=== PATIENT | female | born 1945 | race Caucasian/White ===

== ENCOUNTER → 2020-02-12 16:08 | Outpatient (ROUT) | payer MEDICARE, OTHER, SELFPAY ==
[2020-02-13 13:52] LABS: COVID19 Sendout Not Detected (Not Detect)
== END ==
PROVIDERS: Visit Provider Nurse Practitioner
DX: Z11.59 Encounter for screening for other viral diseases (principal)
CPT/HCPCS: 87635

== ENCOUNTER → 2020-02-15 12:50 | Outpatient (CLI) | payer MEDICARE, OTHER, SELFPAY ==
--- NOTE | 2020-02-22 16:25 | PM.PFT.1 ---
Pulmonary Function Test Referral & Results Date Patient Seen: 02/15/20 Requesting provider: Cherelle Fitzpatrick Indication: Dyspnea upon exertion Results: The spirometry demonstrates an FVC of 1.29 L which is 46% of predicted. The FEV1 was measured at 1.16 L which is 54% of predicted. The FEV1/FVC ratio was 90 which is 119% of predicted. Following the administration of bronchodilator there was 48% improvement in FEF 25-75%. Lung volumes show an SVC of 1.37 L which is 49% of predicted. The diffusing capacity was measured at 12.1 which is 52% of predicted. No hemoglobin value was provided, so no correction for potential anemia could be made, if appropriate. The maximum voluntary ventilation was reduced Interpretation: This study demonstrates both severe restrictive and obstructive lung disease which are fairly balance suggesting more of an interstitial and restrictive lung process. Diffusing capacity is also severely reduced suggesting significant disease at the capillary alveolar level. Altogether this is most consistent with an interstitial lung disease Clinical correlation suggested
== END ==
PROVIDERS: Referring Provider Student in an Organized Health Care Education/Training Program; Visit Provider Student in an Organized Health Care Education/Training Program
DX: R06.09 Other forms of dyspnea (principal); J98.8 Other specified respiratory disorders
CPT/HCPCS: 94060; 94726; 94729

== ENCOUNTER → 2022-03-03 08:51 | Outpatient (CLI) | payer MEDICARE, OTHER, SELFPAY ==
--- NOTE | 2022-03-03 08:53 | DI.RAD.S_ITS ---
PROCEDURE: FL BARIUM SWALLOW W SPEECH INDICATIONS: BRONCHIECTASIS COMPARISON: None. TECHNIQUE: Examination was conducted in conjunction with speech pathology per standard protocol. In the lateral projection, filming was performed of the patient swallowing. AP projection filming may also be performed with patient swallowing. COMPARISON: FINDINGS: Function: The oral preparatory and propulsive phase demonstrates diminished peristalsis. pharyngeal phase appear normal with all proffered substances. No laryngotracheal penetration or aspiration. Mild vallecular and piriform sinus pooling. Brief evaluation of the esophagus in the AP position was performed. There was diminished esophageal peristalsis with tertiary contractions. The calibrated barium tablet was briefly held up at the gastroesophageal junction. Morphology: No cricopharyngeal bar is identified. No cervical esophageal webs. No Zenker's diverticulum. No strictures. C2-C5 ACDF. IMPRESSION: No aspiration. Oral propulsive phase is diminished. Esophageal dysmotility. Please see separately dictated speech pathologist's report. Dictated by: Tenzin aH M.D. on 03/03/2022 at 20:45 Approved by: Tenzin Ha M.D. on 03/03/2022 at 20:49
--- NOTE | 2022-03-03 14:03 | ST.SWALLOW ---
Visit Care Team Role Provider Type Gopi Berg MD Attending Provider Non-Staff Referring Provider Specialty: Internal Medicine Address: [address] [place] [address] [address], [place], [address] Email: Modified Barium Swallow Study SALES CLERK SUPERVISOR Modified Barium Swallow Study Start: 03/03/22 11:31 Freq: Status: Active Protocol: Document 03/03/22 12:39 LNK (Rec: 03/03/22 14:03 LNK [id number]) Modified Barium Swallow Study Total Time Visit Start Time 09:30 Visit Stop Time 10:00 Total Visit Minutes [address] Berg Reason for Referral dysphagia Setting Setting Outpatient Care Patient Information Identification Type Name,Date of Patient History Pt is a 76 year old female seen for a Modified Barium Swallow Study (MBSS). Pt reported that she frequently has difficulty swallowing foods, liquids and pills. She noted that breads and meats are the hardest to swallow feeling stuck and unable to move toward her stomach. She takes medications in a yogurt carrier to avoid them getting stuck in her throat. Pt reported coughing/choking often. She is using cough drops or hard candy to keep her mouth/throat moist. Pt has a PMH of breast cancer (in 1995) with radiation treatment to her chest area and ACDF (in 2013). Pt is also being treated by Dr. Alexander, a field service tech, in [place]. Subjective Observations Pt was seated in the fluoroscopy chair. Directions and procedure were described for the pt, who indicated she understood and agreed to proceed. Patient Positioning Position View Lat-A/P Imaging Lateral View Textures Administered Trials Presented Thin Liquid via Spoon,Thin Liquid via Cup,Pudding Thick Liquid via Spoon,Regular Textures,Barium Tablet Oral Phase Source: MBSIMP (TM) (C) Bolus Specific Scoring Grid Lip Closure No Impairment (WNL) Tongue Control During Bolus Hold No Impairment (WNL) Bolus Prep/Mastication No Impairment (WNL) Bolus Transport/Lingual Motion WFL A/P Lingual Propulsion Delay No Oral Residue Minimal Impairment Residue Clearing Minimal Impairment Nasal Regurgitation No Additional Oral Phase Observations OME indicated structures and function to be WNL. DKS was observed to be WNL. Oral phase: Pt demonstrated good mastication with rotary chew pattern, good bolus control and AP transition. Oral residue was observed at the base of tongue and upper pharynx. This residue remained during the MBSS. Pharyngeal Phase Source: MBSIMP (TM) (C) Bolus Specific Scoring Grid Delayed Initiation of Pharyngeal Swallow No Soft Palate Elevation No Impairment (WNL) Tongue Base Strength/Range of Motion Mild Impairment Residue Along the Tongue Base Yes Clearance of Residue Along Tongue Base Mild Impairment Laryngeal Elevation WFL Anterior Hyoid Movement WFL Epiglottic Range of Motion Moderate Impairment Vallecular Residue Yes: Epiglottis is curled upward in swallow - residue observed across all trials Clearance of Vallecular Residue Moderate Impairment Laryngeal Vestibular Closure Minimal Impairment Pharyngeal Stripping Wave Mild Impairment Posterior Pharyngeal Wall Residue Yes Clearance of Posterior Pharyngeal Wall Mild Impairment Residue Upper Esophageal Sphincter Opening Moderate Impairment Residue in the Pyriform Sinuses Yes Clearance of Residue in the Pyriform Mild Impairment Sinuses Esophageal Clearance Upright Position Severe Impairment Pharyngoesophageal Backflow Observed No Additional Pharyngeal Phase Observations Hyolaryngeal elevation was minimally impaired with flat hyoid movement (instead of angled upward) as the result of observed tongue base weakness. The pt's epiglottis did not invert completely, but was observed to lay in a horizontal position with the curled tip against the posterior pharyngeal wall. This resulted in valecullar pooling throughout the trails, especially with solid trials. However, the seal of the laryngeal vestibule appeared to be functional with no penetration or aspiration of contrast observed during MBSS. Pharyngeal contraction appeared to be weak reducing bolus control to UES and resulting in contrast remaining along the posterior pharyngeal wall. Pooling was observed in the valeculla, the pyriform sinuses, and at the tongue base. There appeared to be reduced duration and extension of the UES opening, with the pt needing to swallow solids >5-6 times per bolus. A/P View Textures Administered Trials Presented Barium Tablet A/P View Observations Esophageal Function Slowed Clearing,Poor Motility, Reverse Peristalsis,Stasis, Narrowing Esophageal Clearance Upright Position Moderate Impairment Additional Observations Pt position was changed from lateral view to AP. Contrast residue was observed remaining throughout the esophagus before tablet trial. Esophageal spasm was noted near mid chest area. When the tablet was swallowed, the pt needed to swallow several sips of water in order to clear the esophagus. There were 3 instances of the tablet stopping during the esophageal scan. Esophageal dysmotility, stasis, narrowing and spasm were noted. Recommend GI referral. Clinical Impressions Findings While no instances of laryngeal penetration/aspiration were observed, the pt remains at risk for aspiration. The lack of complete inversion of the epiglottis and reduction of complete laryngeal seal for swallowing, along with reduced UES opening and esophageal clearing may all contribute to the pt's risk for aspiration. With the pt's PMH of ACDF and s/p radiation treatment in the chest area, there is concern for stiffening of the laryngeal, pharyngeal and esophageal structures as after -effects of the radiation treatments. Additionally, there are potential negative effects on a pt's swallow following ACDF surgery resulting from possible nerve damage during surgery. This pt presents with a moderate aspiration risk. Swallowing therapy is recommended for base of tongue exercises and implementation of safe swallow strategies. Rehabilitation Potential Good Patient Appropriate for Therapy Yes Recommendations Diet Medication Recommendation As Tolerated,Whole in Carrier, Crushed in Carrier Comments No change in diet at this time . Aspiration Precautions Recommended Precautions Upright at 90 Degrees, Alternate Liquids/Solids, Frequent Rest Periods,Small Bites/Sips Treatment Plan Therapy Recommendations Outpatient Speech Therapy,Base of Tongue Exercises,Vocal Fold Adduction Exercises, Compensatory Strategy Education Additional Therapy Recommendations Pt describes hoarseness of her voice. Recommend voice evaluation referral Recommended Referrals GI Consult Additional Recommended Referrals Pt requested that her Production Control Supervisor, Dr Alexander, receive copy of this report Compensatory Strategies Recommendations Sitting Upright (90 deg),Small Bites and Sips,Alternate Liquids/Solids Short Term Goals 1) Therapeutic strategies to reduce the risk of aspiration will be provided to the pt with pt education of normal swallow physiology. 2) Pt's MBSS video will be reviewed with the pt to explain and educate on current aspiration risk, 3) Safe swallow techniques will be demonstrated and practiced by pt to aid in reduced risk for aspiration 4) Tongue based exercises to increase strength of base of tongue and closure of the laryngeal vestibule will be demonstrated and practiced by the pt.1) Additional Recommendations/Comments GI referral
--- NOTE | 2022-03-03 14:11 | ST.OPPOC ---
Physical, Occupational & Speech Therapy At [facility] Visit Care Team Role Provider Type Gopi Berg MD Attending Provider Non-Staff Referring Provider Address: [facility] [address], [place], [address] Speech Pathology Plan of Care Referring Provider Dr. Berg Patient History Pt is a 76 year old female seen for a Modified Barium Swallow Study (MBSS). Pt reported that she frequently has difficulty swallowing foods, liquids and pills. She noted that breads and meats are the hardest to swallow feeling stuck and unable to move toward her stomach. She takes medications in a yogurt carrier to avoid them getting stuck in her throat. Pt reported coughing/choking often. She is using cough drops or hard candy to keep her mouth/throat moist . Pt has a PMH of breast cancer (in 1995) with radiation treatment to her chest area and ACDF ( in 2013). Pt is also being treated by Dr. Alexander, a technologist infectious disease, in [place]. Hyolaryngeal elevation was minimally impaired with flat hyoid movement (instead of angled upward) as the result of observed tongue base weakness. The pt's epiglottis did not invert completely, but was observed to lay in a horizontal position with the curled tip against the posterior pharyngeal wall. This resulted in valecullar pooling throughout the trails, especially with solid trials. However, the seal of the laryngeal vestibule appeared to be functional with no penetration or aspiration of contrast observed during MBSS. Pharyngeal contraction appeared to be weak reducing bolus control to UES and resulting in contrast remaining along the posterior pharyngeal wall. Pooling was observed in the valeculla, the pyriform sinuses, and at the tongue base. There appeared to be reduced duration and extension of the UES opening, with the pt needing to swallow solids >5-6 times per bolus. Pt position was changed from lateral view to AP. Contrast residue was observed remaining throughout the esophagus before tablet trial. Esophageal spasm was noted near mid chest area. When the tablet was swallowed, the pt needed to swallow several sips of water in order to clear the esophagus. There were 3 instances of the tablet stopping during the esophageal scan. Esophageal dysmotility, stasis, narrowing and spasm were noted. Recommend GI referral. Whle no instances of laryngeal penetration/aspiration were observed, the pt remains at risk for aspiration. The lack of complete inversion of the epiglottis and reduction of complete laryngeal seal for swallowing, along with reduced UES opening and esophageal clearing may all contribute to the pt's risk for aspiration. With the pt's PMH of ACDF and s/p radiation treatment in the chest area, there is concern for stiffening of the laryngeal, pharyngeal and esophageal structures as after-effects of the radiation treatments. Additionally, there are potential negative effects on a pt's swallow following ACDF surgery resulting from possible nerve damage during surgery. This pt presents with a moderate aspiration risk. Swallowing therapy is recommended for base of tongue exercises and implementation of safe swallow strategies. GOALS: 1) Therapeutic strategies to reduce the risk of aspiration will be provided to the pt with pt education of normal swallow physiology. 2) Pt's MBSS video will be reviewed with the pt to explain and educate on current aspiration risk, 3) Safe swallow techniques will be demonstrated and practiced by pt to aid in reduced risk for aspiration 4) Tongue based exercises to increase strength of base of tongue and closure of the laryngeal vestibule will be demonstrated and practiced by the pt. Electronically Signed by: SHARMILA De Jesus 03/03/22 [id number] If you are in agreement with this Plan of Care, please return a signed and dated copy. I have reviewed this Plan of Care and certify that the skilled therapy services above are required to meet the patient?s needs. Physician Signature Date Printed Name and Credentials Clinical Instructor Signature Printed Name and Credentials
== END ==
PROVIDERS: Referring Provider Internal Medicine; Visit Provider Internal Medicine
DX: J47.9 Bronchiectasis, uncomplicated (principal); K22.4 Dyskinesia of esophagus
CPT/HCPCS: 74230; 92611

== ENCOUNTER → 2022-09-15 12:16 | Outpatient (CLI) | payer MEDICARE, OTHER, SELFPAY ==
[2022-09-15 13:26] LABS: Add Manual Diff / Slide Review NO; Basophils Absolute Auto 0 /uL (0-100); Basophils Percent Auto 0.4 % (0-2); Eosinophils Absolute Auto 100 /uL (0-450); Eosinophils Percent Auto 0.9 % (2-4); Hemoglobin 11.4 g/dL (12.0-16.0); Lymphocytes Absolute Auto 600 /uL (1100-4500); Mean Corpuscular HGB Conc 33.4 % (30-36); Mean Corpuscular Hemoglobin 34.3 PG (26-34); Mean Corpuscular Volume 102.5 fL (80-100); Monocytes Absolute Auto 500 /uL (0-900); Monocytes Percent Auto 8.3 % (3-14); Neutrophils Absolute Auto 5300 /uL (1500-7000); Neutrophils Percent Auto 81.4 % (50-75); Platelet Count 212 X10^3/uL (150-400); Red Blood Cell Count 3.31 X10^6/uL (4.0-5.2); Red Cell Distribution Width 15.5 % (11.6-14.8); White Blood Cell Count 6.6 X10^3/uL (4.5-11.0)
[2022-09-15 13:37] LABS: Alanine Aminotransferase 47 IU/L (<35); Albumin 4.3 g/dL (3.5-5.0); Albumin Globulin Ratio 1.3 (1.0-2.8); Alkaline Phosphatase 78 U/L (38-126); Aspartate Aminotransferase 61 IU/L (14-36); BUN Creatinine Ratio 21.7 (6-22); Bilirubin Total 0.5 mg/dL (0.2-1.3); Blood Urea Nitrogen 35 mg/dL (7-17); Calcium 9.4 mg/dL (8.4-10.2); Carbon Dioxide 33 mmol/L (22-32); Chloride 100 mmol/L (98-107); Estimated Glomerular Filt Rate 33 mL/min (>60); Globulin 3.3 g/dL (1.7-4.1); Glucose 98 mg/dL (80-110); HEMOLYSIS < 15 (0-50); Potassium 4.5 mmol/L (3.4-5.1); Sodium 139 mmol/L (137-145); Total Protein 7.6 g/dL (6.3-8.2)
[2022-09-15 13:50] LABS: NT-proBNP (BNP-Adult 18+) 2960 pg/mL (<450)
== END ==
PROVIDERS: Family Provider Internal Medicine; PCP Internal Medicine; Referring Provider Internal Medicine Cardiovascular Disease; Visit Provider Internal Medicine Cardiovascular Disease
DX: R06.09 Other forms of dyspnea (principal); I10 Essential (primary) hypertension; E78.5 Hyperlipidemia, unspecified
CPT/HCPCS: 36415; 80053; 83735; 83880; 85025

== ENCOUNTER → 2023-09-06 11:08 | Outpatient (RCR) | payer MEDICARE, OTHER, SELFPAY ==
--- NOTE | 2022-04-26 16:13 | ST.OPIE ---
Visit Care Team Role Provider Type Gopi Berg MD Attending Provider Non-Staff Family Provider Primary Care Provider Referring Provider Specialty: Internal Medicine Address: [address] [place] [address] [address], [place], [address] Email: Speech-Language Pathology Initial Evaluation SHOW GIRL Clinical Swallow Evaluation Start: 04/26/22 09:23 Freq: Status: Active Protocol: Document 04/26/22 12:20 CG (Rec: 04/26/22 13:22 CG [id number]) Clinical Swallow Evaluation Session Time Visit Start Time 10:30 Visit Stop Time 11:25 Total Visit Minutes 55 Visit Information Visit Number 1 Referral Referring Provider Otis Reason for Referral c/o coughing/choking, MBS follow up Setting Assessment Location Outpatient Care Visit Type Note Type Initial evaluation Next Note Type Next Note Type Treatment Note Patient Information Identification Type Name History Pt is a 76 year old female seen for a clinical swallowing evaluation. She was previously seen for a Modified Barium Swallow Study (MBSS) on 03/03/22. Per H&P from MBS: Pt reported that she frequently has difficulty swallowing foods, liquids and pills. She noted that breads and meats are the hardest to swallow feeling stuck and unable to move toward her stomach. She takes medications in a yogurt carrier to avoid them getting stuck in her throat. Pt reported coughing /choking often. She is using cough drops or hard candy to keep her mouth/throat moist. Pt has a PMH of breast cancer (in 1995) with radiation treatment to her chest area and ACDF (in 2013). Pt is also being treated by Dr. Alexander, a cleat maker, in [place]. At this visit pt endorsed this history and reported coughing episodes throughout the day with occasional coughing episodes in the middle of the night. She has not followed up with GI regarding dysphagia though she does take Pantoprazole 40mg and Famotodine 20mg. She reports unintended weight loss due to frequent feelings of premature fullness. Subjective Observations Pt presented with a hoarse voice but otherwise denied any pain. She was alert, oriented, and cooperative throughout and expressed understanding of evaluation and treatment goals. Reported by Patient Current Diet Regular,Thin liquids Baseline Feeding Method Independent in self-feeding Objective Assessment Mental Status Alert,Responsive,Cooperative Oral Integrity WFL Dentition Within normal limits Lip Function Within normal limits Observation of Lips at Rest Symmetrical Pucker Within normal limits Lip Retraction Within normal limits Alternating Pucker/Lip Retraction Within normal limits Tongue Function Within normal limits Observations of Tongue at Rest Within normal limits Tongue Protrusion Within normal limits Tongue Retraction Reduced strength Tongue Lateralization Within normal limits Jaw Function Within normal limits Observations of Jaw at Rest Within normal limits Hard/Soft Palate Function Within normal limits Phonation Hoarse Respiratory Sufficiency Mild impairment Comment Structure and function of tongue, lips, jaw, and oral cavity appear WNL for swallowing. Pt presented with hoarseness and apparent tachypnea/SOB. Pt reports she has scarring on her lungs and is working with a cleat maker in [place]. Food and Liquid Trials Position During Assessment Upright (90 degrees),In chair Liquids Trialed Thin,Pudding Solids Trialed Mechanical Soft,Regular Administration Type Cup single sip,Cup consecutive sips,Self-feeding Oral Impairment Mildly impaired Oral Phase Comments Mild-moderate residue observed on soft palate/ base of tongue following all solid trials, indicating reduced BOT movement, which is consistent with results of MBSS. Otherwise, oral preparatory phase, AP propulsion, and swallow initiation appear WNL. Pharyngeal Impairment Mildly impaired Pharyngeal Phase Comments Trials single cup sip thin, pudding via teaspoon, and regular solid (iva cracker) were all WNL, though audible borborygmi were present and appeared to emanate from esophagus rather than stomach. Trials sequential swallows of thin liquid resulted in pt complaining of bolus not wanting to go down and stating it was difficult to swallow multiple times in a row. This is likely due to slowed esophageal emptying and reduced UES opening as observed on MBSS. Fatigue/Endurance Endurance WNL Findings Swallowing Function Dysphagia unspecified Swallowing Function Comments Reduced BOT retraction, pharyngeal residue, esophageal dysmotility Severity of Swallow Impairment Moderately impaired Contributing Factors to Swallow Excessive pharyngeal residue Impairment Comments Swallow impairment exacerbated by esophageal dysfunction Prognosis Good Based on Cognitive status,Family support Comment Overall, pt presents with moderate dysphagia characterized by mild oral phase impairments, mild pharyngeal phase impairments, and moderate-severe esophageal phase impairment. Oral phase impairments include reduced BOT retraction/strength, resulting in pharyngeal residue in valleculae as observed on MBSS. Esophageal phase is characterized by s/s such as premature fullness and s/s silent reflux (waking up coughing at night, hoarse voice). This is consistent with MBSS obervations of esophageal dysfunction, namely dysmotility and slowed esophageal emptying. Impact on Safety and Functioning Risk for aspiration Recommendations Swallowing Treatment Yes Frequency 1x/week Duration 4-6 weeks Recommended Solids Regular Recommended Liquids Thin Other Recommendations 1. Follow up with GI re: possible imaging of upper GI tract 2/ esophageal dysmotility and spasms objectively observed on MBSS and s/s esophageal dysfunction during current clinical swallowing evaluation. Concern for LPR/GERD/silent reflux overnight. 2. Implement esophageal dysphagia/reflux precautions including: upright posture 30 minutes after meals, do not eat within 3 hours of bedtime, elevate head of bed at night, small bites/sips, one bite/ sip at a time, strict adherance to antacid medication as prescribed, avoid excessive spicy foods/ caffeine/alcohol. 3. Monitor vocal quality following implementation of esophageal precautions; formally evaluate voice if still hoarse after implementing these changes. 4. Recommend referral to dietary due to unintended weight loss resulting from premature fullness. Safety Precautions/Swallowing Remain upright (90 degrees) Recommendations during all oral intake,Small bites and sips when eating, Slow rate; swallow between bites Medication Recommendations As Tolerated,Whole in Carrier Discharge Recommendations Outpatient therapy Referrals Recommended Referrals Dietary,Gastroenterology Education Patient/Caregiver Education Described results of evaluation,Patient expressed understanding of evaluation, Patient expressed agreement with goals & treatment plans, Family/caregivers expressed understanding of evaluation, Family/caregivers expressed agreement with goals & treatment plans,Patient expressed understanding of feeding recommendations,Family /caregivers expressed understanding of feeding recommendations,Patient requires further education/ training,Family/caregivers require further education/ training Goals Short-term Goals 1. Pt will benefit from education regarding swallow physiology and aspiration risk factors. 2. Pt will demonstrate proficiency with restorative exercises and compensatory strategies with 80% accuracy given moderate cueing from SHOW GIRL . Long-term Goals 1. Pt will consume least restrictive diet without s/s aspiration/penetration in order to meet nutrition/ hydration needs. 2. Pt will demonstrate proficiency with restorative exercises and compensatory strategies independently ( without the need for cues or instruction).
--- NOTE | 2022-04-26 16:20 | ST.OPPOC ---
Physical, Occupational & Speech Therapy At [facility] Visit Care Team Role Provider Type Gopi Berg MD Attending Provider Non-Staff Family Provider Primary Care Provider Referring Provider Address: [address], [place], [address] Speech Pathology Plan of Care Referring Provider Otis Patient History Pt is a 76 year old female seen for a clinical swallowing evaluation. She was previously seen for a Modified Barium Swallow Study (MBSS) on 03/03/22. Per H&P from MBS: Pt reported that she frequently has difficulty swallowing foods, liquids and pills. She noted that breads and meats are the hardest to swallow feeling stuck and unable to move toward her stomach. She takes medications in a yogurt carrier to avoid them getting stuck in her throat. Pt reported coughing/choking often. She is using cough drops or hard candy to keep her mouth/throat moist. Pt has a PMH of breast cancer (in 1995) with radiation treatment to her chest area and ACDF (in 2013). Pt is also being treated by Dr. Alexander, a law instructor, in [place]. At this visit pt endorsed this history and reported coughing episodes throughout the day with occasional coughing episodes in the middle of the night. She has not followed up with GI regarding dysphagia though she does take Pantoprazole 40mg and Famotodine 20mg. She reports unintended weight loss due to frequent feelings of premature fullness. MBS Comments Whle no instances of laryngel penetration/ aspiration were obseerved, the pt remains at risk for aspiration. The lack of complete inversion of the epiglottis and reduction of complete laryngeal seal for swallowing, along with reduced UES opening and esophageal clearing may all contribute to the pt's risk for aspiration. With the pt's PMH of ACDF and s/p radiation treatment in the chest area, there is concern for stiffening of the laryngeal, pharyngeal and esophageal structures as after- effects of the radiation treatments. Additionally, there are potential negative effects on a pt's swallow following ACDF surgery resulting from possible nerve damage during surgery. This pt presents with a moderate aspiration risk. Swallowing therapy is recommended for base of tongue exercises ans implementation od safe swallow strategies. Recommended Referrals GI Consult Additional Referrals Pt requested that her Tattoo Identifier, Dr Alexander, Recommended receive copy of this report Short Term Goals 1) Therapeutic strategies to reduce the risk of aspiration will be provided to the pt with pt education of normal swallow physioolgy. 2) Pt's MBSS video will be reviewed with the pt to explain and educate on current aspiration risk, 3) Safe swallow techniques will be demonstrated and pacticed by pt to aid in reduced risk for aspiration 4) Tongue based exercises to increase strength od base of antonio and closure of the laryngeal vestibule will be demonstrated and practiced by the pt.1) Short-term Goals 1. Pt will benefit from education regarding swallow physiology and aspiration risk factors. 2. Pt will demonstrate proficiency with restorative exercises and compensatory strategies with 80% accuracy given moderate cueing from HVAC DESIGNER. Long-term Goals 1. Pt will consume least restrictive diet without s/s aspiration/penetration in order to meet nutrition/hydration needs. 2. Pt will demonstrate proficiency with restorative exercises and compensatory strategies indpendently (without the need for cues or instruction). Comment: Electronically Signed by: SHARMILA Lozano 04/26/22 9904 If you are in agreement with this Plan of Care, please return a signed and dated copy. I have reviewed this Plan of Care and certify that the skilled therapy services above are required to meet the patient?s needs. Physician Signature Date Printed Name and Credentials Clinical Instructor Signature Printed Name and Credentials
--- NOTE | 2022-05-03 11:37 | ST.IPDYTX ---
Visit Care Team Role Provider Type Gopi Berg MD Attending Provider Non-Staff Family Provider Primary Care Provider Referring Provider Specialty: Internal Medicine Address: [address] [place], [place] [address], [place], [address] Email: SUPERVISOR SANDBLASTER Dysphagia Treatment SUPERVISOR SANDBLASTER Dysphagia Treatment Start: 05/03/22 11:23 Freq: Status: Active Protocol: Document 05/03/22 11:23 CG (Rec: 05/03/22 11:35 CG [id number]) Dysphagia Treatment Session Time Visit Start Time 10:30 Visit Stop Time 11:23 Total Visit Minutes 53 Visit Information Visit Number 2 Plan of Care Dates 04/26/21-06/24/21 Setting Assessment Location Outpatient Care Next Note Type Next Note Type Treatment Note Patient Information Identification Type Name Subjective Observations Pt presented with a hoarse voice and reported right hip pain and lower back pain from a chronic issue that flared up this weekend. Treatment Pharyngeal Strategies Effortful Swallow, Supersupraglottic Swallow Additional Dysphagia Treatment Shaker exercise, Audra Strategies maneuver, tongue pull-backs Treatment Activities SUPERVISOR SANDBLASTER provided pt counseling regarding esophageal dysphagia /reflux precautions including reviewing possible trigger foods and reviewing implementation of strategies to reduce silent reflux overnight, including not eating/drinking for 3 hours before bed and using pillows to prop head up in bed. Reviewed MBSS video with patient in explaining physiological impairments to the pt's swallow and developed restorative exercise plan based on physiological impairments. This included Audra maneuver/tongue pull backs to facilitate tongue base retraction, effortful swallow to promote esophageal clearance/PES opening, and Shaker exercises to promote esophageal clearance/PES opening. SUPERVISOR SANDBLASTER provided typed home exercise plan with exercise tracker to promote adherance, and provided counseling regarding pairing exercises with a pre- established routine to help the pt remember to complete these exercises. Assessment Patient Response to Treatment Excellent Rehab Potential Excellent Assessment of Improvement Pt demonstrated increased insight into triggers for reflux and s/s esophageal dysphagia, stating that she noticed her symptoms increased after drinking a Diet Coke following SUPERVISOR SANDBLASTER counseling on trigger foods/drinks (i.e. caffeine and dark sodas). Pt was engaged and asking questions during review of MBSS video, with pt expressing understanding of present physiological impairments. Pt demonstrated accurate completion of effortful swallow; however, pt was unable to complete Audra maneuver so exercise was modified to tongue pull-backs. Pt expressed understanding of home exercise program as prescribed. Diet Recommendations Recommendations Continue Current Diet Liquids Order Thin Diet Order Regular Medication Recommendations As Tolerated,Whole in Carrier Comments No change in diet at this time . Aspiration Precautions Recommended Precautions Effortful Swallow Additional Precautions Esophageal dysphagia/reflux precautions. Treatment Plan Placement Recommendation after Discharge Home Appropriate for Continued Therapy Yes Therapy Recommendations Continue per POC; focus next session on compensatory strategies and esophageal dysphagia precautions. Dysphagia Goals Short term goals: 1. Pt will benefit from education regarding swallow physiology and aspiration risk factors. 2. Pt will demonstrate proficiency with restorative exercises and compensatory strategies with 80% accuracy given moderate cueing from SUPERVISOR SANDBLASTER . assisted goals: 1. Pt will consume least restrictive diet without s/s aspiration/penetration in order to meet nutrition/ hydration needs. 2. Pt will demonstrate proficiency with restorative exercises and compensatory strategies indpendently ( without the need for cues or instruction). Referrals/Other Recommended Referrals GI Consult
--- NOTE | 2022-05-10 16:03 | ST.IPDYTX ---
Visit Care Team Role Provider Type Gopi Berg MD Attending Provider Non-Staff Family Provider Primary Care Provider Referring Provider Specialty: Internal Medicine Address: [address] [place] [address] [address], [place], [address] Email: CRM CONSULTANT Dysphagia Treatment CRM CONSULTANT Dysphagia Treatment Start: 05/03/22 11:23 Freq: Status: Active Protocol: Document 05/10/22 15:54 CG (Rec: 05/10/22 16:03 CG [id number]) Dysphagia Treatment Session Time Visit Start Time 10:30 Visit Stop Time 11:23 Total Visit Minutes 53 Visit Information Visit Number 3 Plan of Care Dates 04/26/21-06/24/21 Setting Assessment Location Outpatient Care Visit Type Note Type Treatment Note Next Note Type Next Note Type Treatment Note Patient Information Identification Type Name Subjective Observations Pt presented with slightly increased vocal intensity, though vocal quality remained moderately hoarse. Pt did not report any pain. Treatment Pharyngeal Strategies Effortful Swallow, Supersupraglottic Swallow Additional Dysphagia Treatment Restorative exercises & pt Strategies counseling re esophageal dysphagia precautions Treatment Activities CRM CONSULTANT provided continued pt counseling regarding esophageal dysphagia/reflux precautions including reviewing possible trigger foods and reviewing implementation of strategies to reduce silent reflux overnight, including not eating/drinking for 3 hours before bed and using pillows to prop head up in bed. Discussed pharyngoesophageal anatomy and the relationship between GERD/LPR and vocal quality. Reviewed home exercise program which included Audra maneuver/ tongue pull backs to facilitate tongue base retraction, effortful swallow to promote esophageal clearance/PES opening, and Shaker exercises to promote esophageal clearance/PES opening. Exercise plan was modified based on pt report such that Audra manuevers were replaced with tongue pull -backs and Shaker exercises were replaced with chin tuck against resistance exercises, based on pt feedback. Provided instruction in completion of the Shelbie maneuver. Pt reports she has decreased difficulty swallowing and has been completing 30 repetitions of each exercise per day. Assessment Patient Response to Treatment Excellent Rehab Potential Excellent Assessment of Improvement Pt demonstrated increased insight into triggers for reflux and s/s esophageal dysphagia, stating that she noticed her symptoms increased after drinking a Diet Coke following CRM CONSULTANT counseling on trigger foods/drinks (i.e. caffeine and dark sodas). She has made lifestyle modifications including reducing alcohol intake and eliminating dark sodas. Additionally, she is propping up the head of her bed at night. Based on pt report, she is highly compliant with HEP. Vocal intensity appears to be improving based on CRM CONSULTANT perception, and this was also endorsed by pt's . Will plan to wait 2 weeks for next appointment to assess the result of continued lifestyle modifications on swallowing and voice concerns. Diet Recommendations Recommendations Continue Current Diet Liquids Order Thin Diet Order Regular Medication Recommendations As Tolerated,Whole in Carrier Comments No change in diet at this time . Aspiration Precautions Recommended Precautions Upright at 90 Degrees Additional Precautions Esophageal dysphagia/reflux precautions. Treatment Plan Placement Recommendation after Discharge Home Appropriate for Continued Therapy Yes Therapy Recommendations Continue per POC; focus next session on reviewing compliance with HEP and esophageal dysphagia precautions. Dysphagia Goals Short term goals: 1. Pt will benefit from education regarding swallow physiology and aspiration risk factors. 2. Pt will demonstrate proficiency with restorative exercises and compensatory strategies with 80% accuracy given moderate cueing from CRM CONSULTANT . long term care administrator goals: 1. Pt will consume least restrictive diet without s/s aspiration/penetration in order to meet nutrition/ hydration needs. 2. Pt will demonstrate proficiency with restorative exercises and compensatory strategies indpendently ( without the need for cues or instruction). Referrals/Other Recommended Referrals GI Consult
--- NOTE | 2022-05-17 11:42 | ST.IPDYTX ---
Visit Care Team Role Provider Type Gopi Berg MD Attending Provider Non-Staff Family Provider Primary Care Provider Referring Provider Specialty: Internal Medicine Address: [facility] [address], [place], [address] Email: COOK ENCHILADA Dysphagia Treatment COOK ENCHILADA Dysphagia Treatment Start: 05/03/22 11:23 Freq: Status: Active Protocol: Document 05/17/22 11:33 CG (Rec: 05/17/22 11:42 CG [id number]) Dysphagia Treatment Session Time Visit Start Time 10:30 Visit Stop Time 11:23 Total Visit Minutes 53 Visit Information Visit Number 3 Plan of Care Dates 04/26/21-06/24/21 Setting Assessment Location Outpatient Care Visit Type Note Type Treatment Note Next Note Type Next Note Type Treatment Note Patient Information Identification Type Name Subjective Observations Pt presented with slightly increased vocal intensity, though vocal quality remained moderately hoarse. Pt did not report any pain. Treatment Liquids Trialed Thin,Pudding Solids Trialed Mechanical Soft,Regular Pharyngeal Strategies Effortful Swallow, Supersupraglottic Swallow Additional Dysphagia Treatment Restorative exercises & pt Strategies counseling re esophageal dysphagia precautions Treatment Activities COOK ENCHILADA provided continued pt counseling regarding esophageal dysphagia/reflux precautions including, and pt reports reduced instances of globus sensation and overall dysphagia. Pt reports fewer incidents of reflux. Reviewed home exercise program; specifically, provided instruction in completion of the Shelbie maneuver, which the pt was having trouble with. Ultimately, the pt was still having difficulty completing this exercise after instruction, so she was encouraged to replace it with more effortful swallows. Due to continued hoarseness of voice, suspected to be a result of inflamation from gastric acid, pt was given a list of semi-occluded vocal tract exercises for vocal fold strengthening and agility alongside counseling to continue with esophageal dysphagia precautions. Assessment Patient Response to Treatment Excellent Rehab Potential Excellent Assessment of Improvement Pt demonstrated good insight into lifestlyle modifications and reported instances in which she had not met recommendations, indicating good self-monitoring. Overall, she has been compliant with most esophageal dysphagia precautions/modifications except in some instances (i.e. special events with family) Based on pt report, she is highly compliant with HEP. Vocal intensity appears to be improving based on COOK ENCHILADA perception, though hoarseness remains. Pt reports reduced globus sensation and reduced overall dysphagia. She reports no difficulty lately in swallowing preferred foods/ liquids. Pt previously had a scope performed by an ENT in relation to her vocal quality. COOK ENCHILADA will initiate necessary paperwork to receive a copy of this report to have on file. Diet Recommendations Recommendations Continue Current Diet Liquids Order Thin Diet Order Regular Medication Recommendations As Tolerated,Whole in Carrier Comments No change in diet at this time . Aspiration Precautions Recommended Precautions Upright at 90 Degrees Additional Precautions Esophageal dysphagia/reflux precautions. Treatment Plan Placement Recommendation after Discharge Home Appropriate for Continued Therapy Yes Therapy Recommendations Continue per POC; focus next session on reviewing HEP, esophageal dysphagia precautions, and laryngeal exercises. Dysphagia Goals Short term goals: 1. Pt will benefit from education regarding swallow physiology and aspiration risk factors. 2. Pt will demonstrate proficiency with restorative exercises and compensatory strategies with 80% accuracy given moderate cueing from COOK ENCHILADA . [facility] goals: 1. Pt will consume least restrictive diet without s/s aspiration/penetration in order to meet nutrition/ hydration needs. 2. Pt will demonstrate proficiency with restorative exercises and compensatory strategies indpendently ( without the need for cues or instruction). Referrals/Other Recommended Referrals GI Consult
--- NOTE | 2022-05-24 10:19 | ST.IPDYTX ---
Visit Care Team Role Provider Type Gopi Berg MD Attending Provider Non-Staff Family Provider Primary Care Provider Referring Provider Specialty: Internal Medicine Address: [address] [place], [place] [address], [place], [address] Email: PARKING PATROLLER Dysphagia Treatment PARKING PATROLLER Dysphagia Treatment Start: 05/03/22 11:23 Freq: Status: Active Protocol: Document 05/24/22 10:11 CG (Rec: 05/24/22 10:19 CG [id number]) Dysphagia Treatment Session Time Visit Start Time 09:32 Visit Stop Time 10:11 Total Visit Minutes 39 Visit Information Visit Number 4 Plan of Care Dates 04/26/21-06/24/21 Setting Assessment Location Outpatient Care Visit Type Note Type Treatment Note Next Note Type Next Note Type Treatment Note Patient Information Identification Type Name Subjective Observations Pt presented with slightly increased vocal intensity, and vocal hoarseness mildly reduced. Pt reported arthritis pain. Treatment Solids Trialed Mechanical Soft,Regular Additional Dysphagia Treatment Pt counseling re esophageal Strategies dysphagia precautions, laryngeal exercises Treatment Activities PARKING PATROLLER provided continued pt counseling regarding esophageal dysphagia/reflux precautions including, and pt reports reduced instances of globus sensation and overall dysphagia. Pt reports fewer incidents of reflux. Reviewed home exercise program included new laryngeal exercises which were added last week to target laryngeal strength/agility. Pt had reported difficulty/pain wioth larygneal (SOVT) exercises; modifications and instruction provided as required. Reviewed with the pt possible outside referrals needed for management of esophageal dysphagia (i.e., GI) and vocal quality (i.e. follow up with harness worker) and recommended questions/suggestions for appointments with these specialists. Assessment Patient Response to Treatment Excellent Rehab Potential Excellent Assessment of Improvement Pt is highly compliant with lifestyle modifications. She reports having completed home exercises for dysphagia with moderate adherance, though reduced this past week. She did not complete SOVT exericses due to difficulty/ pain, but expressed understanding of modifications for accurate execution of these exercises. Pt reports reduced globus sensation and reduced overall dysphagia. She reports no difficulty lately in swallowing preferred foods/liquids. Pt previously had a scope performed by an ENT in relation to her vocal quality. PARKING PATROLLER has initiated necessary paperwork to receive a copy of this report to have on file and to assess possible causes for pt hoarseness. Diet Recommendations Recommendations Continue Current Diet Liquids Order Thin Diet Order Regular Medication Recommendations As Tolerated,Whole in Carrier Comments No change in diet at this time . Aspiration Precautions Recommended Precautions Upright at 90 Degrees Additional Precautions Esophageal dysphagia/reflux precautions. Treatment Plan Placement Recommendation after Discharge Home Appropriate for Continued Therapy Yes Therapy Recommendations Continue per POC, follow up with ENT re scope Dysphagia Goals Short term goals: 1. Pt will benefit from education regarding swallow physiology and aspiration risk factors. 2. Pt will demonstrate proficiency with restorative exercises and compensatory strategies with 80% accuracy given moderate cueing from PARKING PATROLLER . alf goals: 1. Pt will consume least restrictive diet without s/s aspiration/penetration in order to meet nutrition/ hydration needs. 2. Pt will demonstrate proficiency with restorative exercises and compensatory strategies indpendently ( without the need for cues or instruction). Referrals/Other Recommended Referrals GI Consult
--- NOTE | 2022-05-31 10:26 | ST.OPDC.SWTH ---
Visit Care Team Role Provider Type Gopi Berg MD Attending Provider Non-Staff Family Provider Primary Care Provider Referring Provider Specialty: Internal Medicine Address: [address] [place] [address] [address], [place], [address] Email: Adult Cognitive Linguistic Evaluation LOCAL TELEPHONE OPERATOR Clinical Swallow Evaluation Start: 04/26/22 09:23 Freq: Status: Active Protocol: Document 04/26/22 12:20 CG (Rec: 04/26/22 13:22 CG [id number]) Clinical Swallow Evaluation Session Time Visit Start Time 10:30 Visit Stop Time 11:25 Total Visit Minutes 55 Visit Information Visit Number 1 Referral Referring Provider Otis Reason for Referral c/o coughing/choking, [facility] follow up Setting Assessment Location Outpatient Care Visit Type Note Type Initial evaluation Next Note Type Next Note Type Treatment Note Patient Information Identification Type Name History Pt is a 76 year old female seen for a clinical swallowing evaluation. She was previously seen for a Modified Barium Swallow Study (MBSS) on 03/03/22. Per H&P from [facility]: Pt reported that she frequently has difficulty swallowing foods, liquids and pills. She noted that breads and meats are the hardest to swallow feeling stuck and unable to move toward her stomach. She takes medications in a yogurt carrier to avoid them getting stuck in her throat. Pt reported coughing /choking often. She is using cough drops or hard candy to keep her mouth/throat moist. Pt has a PMH of breast cancer (in 1995) with radiation treatment to her chest area and ACDF (in 2013). Pt is also being treated by Dr. Alexander, a principal systems engineer, in [place]. At this visit pt endorsed this history and reported coughing episodes throughout the day with occasional coughing episodes in the middle of the night. She has not followed up with GI regarding dysphagia though she does take Pantoprazole 40mg and Famotodine 20mg. She reports unintended weight loss due to frequent feelings of premature fullness. Subjective Observations Pt presented with a hoarse voice but otherwise denied any pain. She was alert, oriented, and cooperative throughout and expressed understanding of evaluation and treatment goals. Reported by Patient Current Diet Regular,Thin liquids Baseline Feeding Method Independent in self-feeding Objective Assessment Mental Status Alert,Responsive,Cooperative Oral Integrity WFL Dentition Within normal limits Lip Function Within normal limits Observation of Lips at Rest Symmetrical Pucker Within normal limits Lip Retraction Within normal limits Alternating Pucker/Lip Retraction Within normal limits Tongue Function Within normal limits Observations of Tongue at Rest Within normal limits Tongue Protrusion Within normal limits Tongue Retraction Reduced strength Tongue Lateralization Within normal limits Jaw Function Within normal limits Observations of Jaw at Rest Within normal limits Hard/Soft Palate Function Within normal limits Phonation Hoarse Respiratory Sufficiency Mild impairment Comment Structure and function of tongue, lips, jaw, and oral cavity appear WNL for swallowing. Pt presented with hoarseness and apparent tachypnea/SOB. Pt reports she has scarring on her lungs and is working with a principal systems engineer in [place]. Food and Liquid Trials Position During Assessment Upright (90 degrees),In chair Liquids Trialed Thin,Pudding Solids Trialed Mechanical Soft,Regular Administration Type Cup single sip,Cup consecutive sips,Self-feeding Oral Impairment Mildly impaired Oral Phase Comments Mild-moderate residue observed on soft palate/ base of tongue following all solid trials, indicating reduced BOT movement, which is consistent with results of MBSS. Otherwise, oral preparatory phase, AP propulsion, and swallow initiation appear WNL. Pharyngeal Impairment Mildly impaired Pharyngeal Phase Comments Trials single cup sip thin, pudding via teaspoon, and regular solid (iva cracker) were all WNL, though audible borborygmi were present and appeared to eminate from esophagus rather than stomach. Trials sequential swallows of thin liquid resulted in pt complaining of bolus not wanting to go down and stating it was difficult to swallow multiple times in a row. This is likely due to slowed esophageal emptying and reduced UES opening as observed on MBSS. Fatigue/Endurance Endurance WNL Findings Swallowing Function Dysphagia unspecified Swallowing Function Comments Reduced BOT retraction, pharyngeal residue, esophageal dysmotility Severity of Swallow Impairment Moderately impaired Contributing Factors to Swallow Excessive pharyngeal residue Impairment Comments Swallow impairment exacerbated by esophageal dysfunction Prognosis Good Based on Cognitive status,Family support Comment Overall, pt presents with moderate dysphagia characterized by mild oral phase impairments, mild pharyngeal phase impairments, and moderate-severe esophageal phase impairment. Oral phase impairments include reduced BOT retraction/strength, resulting in pharyngeal residue in valleculae as observed on MBSS. Esophageal phase is characterized by s/s such as premature fullness and s/s silent reflux (waking up coughing at night, hoarse voice). This is consistent with MBSS obervations of esophageal dysfuntion, namely dysmotility and slowed esophageal emptying. Impact on Safety and Functioning Risk for aspiration Recommendations Swallowing Treatment Yes Frequency 1x/week Duration 4-6 weeks Recommended Solids Regular Recommended Liquids Thin Other Recommendations 1. Follow up with GI re: possible imaging of upper GI tract 2/ esophageal dysmotility and spasms objectively observed on MBSS and s/s esophageal dysfunction during current clinical swallowing evaluation. Concern for LPR/GERD/silent reflux overnight. 2. Implement esophageal dysphagia/reflux precautions including: upright posture 30 minutes after meals, do not eat within 3 hours of bedtime, elevate head of bed at night, small bites/sips, one bite/ sip at a time, strict adherance to antacid medication as prescribed, avoid excessive spicy foods/ caffeine/alcohol. 3. Monitor vocal quality following implementation of esophageal precautions; formally evaluate voice if still hoarse after implementing these changes. 4. Reccomend referral to dietary due to unintended weight loss resulting from premature fullness. Safety Precautions/Swallowing Remain upright (90 degrees) Recommendations during all oral intake,Small bites and sips when eating, Slow rate; swallow between bites Medication Recommendations As Tolerated,Whole in Carrier Discharge Recommendations Outpatient therapy Referrals Recommended Referrals Dietary,Gastroenterology Education Patient/Caregiver Education Described results of evaluation,Patient expressed understanding of evaluation, Patient expressed agreement with goals & treatment plans, Family/caregivers expressed understanding of evaluation, Family/caregivers expressed agreement with goals & treatment plans,Patient expressed understanding of feeding recommendations,Family /caregivers expressed understanding of feeding recommendations,Patient requires further education/ training,Family/caregivers require further education/ training Goals Short-term Goals 1. Pt will benefit from education regarding swallow physiology and aspiration risk factors. 2. Pt will demonstrate proficiency with restorative exercises and compensatory strategies with 80% accuracy given moderate cueing from LOCAL TELEPHONE OPERATOR . Long-term Goals 1. Pt will consume least restrictive diet without s/s aspiration/penetration in order to meet nutrition/ hydration needs. 2. Pt will demonstrate proficiency with restorative exercises and compensatory strategies indpendently ( without the need for cues or instruction).
--- NOTE | 2023-09-05 11:34 | ST.OPDC.SWTH ---
Visit Care Team Role Provider Type Gopi Berg MD Attending Provider Non-Staff Family Provider Primary Care Provider Referring Provider Specialty: Internal Medicine Address: [address] [place] [address] [address], [place], [address] Email: MEDICAL OFFICE RECEPTIONIST ASSISTANT Dysphagia Treatment Discharge Summary MEDICAL OFFICE RECEPTIONIST ASSISTANT Dysphagia Treatment Discharge Summary Start: 05/03/22 11:23 Freq: Status: Active Protocol: Document 09/05/23 11:30 CG (Rec: 09/05/23 11:34 CG [id number]) Dysphagia Treatment Visit Information Visit Number 5 Plan of Care Dates 04/26/21-06/24/21 Setting Assessment Location Outpatient Care Visit Type Note Type Discharge Summary Next Note Type Next Note Type Treatment Note Patient Information Identification Type Name Treatment Pharyngeal Strategies Effortful Swallow, Supersupraglottic Swallow Additional Dysphagia Treatment Pt counseling re esophageal Strategies dysphagia precautions, laryngeal exercises Treatment Activities Course of tx included MEDICAL OFFICE RECEPTIONIST ASSISTANT provided monitoring and assessment of s/s dysphagia. MEDICAL OFFICE RECEPTIONIST ASSISTANT provided pt education in reflux precautions and recommendations to remediate s /sx esophageal dysphagia. Additional tx included laryngeal exercises (semi occluded vocal tract exercises ) for voice, which was impacted by reflux. Discussed discharge plan including following up with PCP regarding MEDICAL OFFICE RECEPTIONIST ASSISTANT referral for voice therapy. Pt did not pursue follow-up referral; pt account to be discharged. The IDDSI Framework Protocol: IDDSI.1 Assessment Patient Response to Treatment Good Rehab Potential Excellent Assessment of Improvement Pt was compliant with lifestyle modifications. Pt reported reduced globus sensation and reduced overall dysphagia, with no difficulty taking all her medications with water. She reported no difficulty lately in swallowing preferred foods/ liquids. Encouraged pt to request new referral for voice due to ongoing hoarseness apparently unrelated to reflux /esophageal dysphagia. Given all goals have been met and highest therapeutic level achieved with dysphagia therapy, discharge from dysphagia therapy at this time and consider pursuing voice therapy. Pt did not pursue voice therapy; discharge pt acct due to inactivity. Recommendations Recommendations Continue Current Diet Medication Recommendations As Tolerated,Whole in Carrier Comments No change in diet at this time . Aspiration Precautions Recommended Precautions Upright at 90 Degrees Additional Precautions Esophageal dysphagia/reflux precautions. Treatment Plan Placement Recommendation after Discharge Home Appropriate for Continued Therapy No: Goals met Dysphagia Goals Short term goals: 1. Pt will benefit from education regarding swallow physiology and aspiration risk factors. 2. Pt will demonstrate proficiency with restorative exercises and compensatory strategies with 80% accuracy given moderate cueing from MEDICAL OFFICE RECEPTIONIST ASSISTANT . FPC goals: 1. Pt will consume least restrictive diet without s/s aspiration/penetration in order to meet nutrition/ hydration needs. 2. Pt will demonstrate proficiency with restorative exercises and compensatory strategies indpendently ( without the need for cues or instruction). Referrals/Other Recommended Referrals GI Consult
== END | disposition home or self-care (01) ==
LOC: SP 04-26 10:27
PROVIDERS: Family Provider Internal Medicine; PCP Internal Medicine; Referring Provider Internal Medicine; Visit Provider Internal Medicine
DX: K22.4 Dyskinesia of esophagus (principal)
CPT/HCPCS: 92526; 92610; 92611